=== PATIENT | male | born 2000 | race African-American/Black ===

== ENCOUNTER 2018-12-22 09:16 | Emergency (ER) | payer MEDICAID ==
[~2018-12-22] VITALS: Ht 167.6 cm; Wt 115.0 kg
[2018-12-22] MEDS ORDERED: KETOROLAC 30MG/ML VIAL IV STA (09:33)
[2018-12-22 09:59] LABS: BASOPHILS % 0.6 % (0.0-2.0); HEMATOCRIT. 46.6 % (42.0-52.0); HEMOGLOBIN. 16.6 g/dL (14.0-18.0); LYMPHOCYTES % 16.1 % (20.0-50.0); MEAN CORPUSCULAR HEMOGLOBIN 32.3 pg (28.0-32.0); MEAN CORPUSCULAR VOLUME 90.5 fL (80.0-94.0); MEAN PLATELET VOLUME 9.2 fl (7.4-10.4); MONOCYTES % 9.3 % (2.0-8.0); PLATELET 192 x1000/uL (130-400); RED BLOOD CELL COUNT 5.15 mill/uL (4.7-6.1); RED CELL DISTRIBUTION WIDTH 13.1 % (11.6-14.6)
[2018-12-22 10:05] LABS: CHLORIDE 110 mEq/L (98-107)
[2018-12-22] MEDS ORDERED: LEVOFLOXACIN 750MG PREMIX 150 ML IV ONE (10:15)
[2018-12-22 13:00] VITALS: BP 135/77
[2018-12-22] MEDS ORDERED: KETOROLAC 30MG/ML VIAL IV ONE (13:00)
== END 2018-12-22 13:31 | disposition short-term general hospital (02) ==
LOC: ER 09:16
DX: L03.211 Cellulitis of face (principal); K04.7 Periapical abscess without sinus; F17.200 Nicotine dependence, unspecified, uncomplicated; F12.10 Cannabis abuse, uncomplicated
CPT/HCPCS: 36415; 70486; 80053; 85025; 96365; 96375; 96376; 99285; J1885; J1956; Z7610